=== PATIENT | female | born 1990 | race Caucasian/White ===

== ENCOUNTER → 2017-08-30 | Outpatient (CLI) | payer MEDICAID ==
[~2017-08-30] MED LIST: ACETAMINOPHEN/HYDROcodone 325 MG/5 MG TAB PO
== END ==
LOC: HPND 10:17
DX: O36.63X0 Maternal care for excessive fetal growth, third trimester, not applicable or unspecified (principal); O40.3XX0 Polyhydramnios, third trimester, not applicable or unspecified
CPT/HCPCS: 76816; 76818

== ENCOUNTER 2017-09-16 19:15 | Inpatient (IN) | payer MEDICAID ==
[~2017-09-16] VITALS: Ht 160 cm; Wt 68.0 kg
[~2017-09-16 19:15] MED LIST changes: -ACETAMINOPHEN/HYDROcodone 325 MG/5 MG TAB PO; +LACTATED RINGER'S 1000 ML INJ 2,000 ML IV ONE; +MIRA3350 PO; +ONDANSETRON HCL 4 MG/2 ML VIAL IV ONE; +OXYTOCIN 10 UNIT/ML AMP IV ONE; +PHENYLEPH/NS 1000 MCG/10 ML SYR IV ONE; +PREN1CAP7 PO; +ZANT150T2 PO; +ceFAZolin INJ 1,000 MG VIAL IV ONE; +ePHEDrine/NS 25 MG/5 ML SYRINGE IV ONE
[2017-09-16] MEDS ORDERED: LACTATED RINGER'S 1000 ML INJ 1,000 ML IV ONE (20:00)
--- NOTE | 2017-09-16 20:00 | HHI.HP ---
HPI Chief Complaint Contraction pain water broke Date Seen: Sep 16, 2017 Time Seen: 19:55 Travel History International Travel<30 Days: No Contact w/Intl Traveler<30Days: No Known Affected Area: No History of Present Illness HPI 27-year-old white female previous 1 at 39 weeks who was scheduled for repeat in 2 days but now presents with spontaneous contractions and ruptured membranes. Amnio sure is positive here on OB ED. He is kristopher painfully every 2 minutes. With this she is breech and is polyhydramnios. heart rate tracing is reactive Weeks Gestation: 39 Para: 1 : 2 History Obstetric History Obstetric History 1 for breech Past Surgical History Narrative Surgical Social History Alcohol Use: No Tobacco Use: No Substance Abuse: No Allergies-Medications (Allergen,Severity, Reaction): Coded Allergies: latex (Verified Allergy, Intermediate, itchy, red, 09/16/17) Home Meds Active Scripts W/O Vit A W/ Fe Fumar (Citranatal Lawrence) 27-1-260 Mg Cap, 1 CAP PO DAILY for Nutritional Supplement, #30 CAP 11 Refills Prov:Danay Palacios 03/05/17 Discontinued Reported Medications Polyethylene Glycol 3350 Powder (Miralax Powder) 17 Gm Powd, 17 GM PO DAILY for Constipation, #1 CAN 0 Refills Mix and dissolve one measuring cap-ful (17 grams) in water or juice. 03/05/17 Discontinued Scripts Ranitidine (Zantac) 150 Mg Tab, 150 MG PO BID for Reduce Stomach Acid, #60 TAB 6 Refills Prov:Danay Palacios 06/07/17 Review of Systems General / Constitutional: No: Fever, Weight Gain, Chills, Other Eyes: No: Diploplia, Blurred Vision, Visual changes, Pain, Photophobia HENT: No: Headaches, Vertigo, Lightheadedness Cardiovascular: No: Irregular Rhythm, Chest Pain or Discomfort, Palpitations, Tachycardia, Syncope, Varicosities, Edema, Cyanosis Respiratory: No: Cough, Short of Breath, Other Gastrointestinal: Abdominal Pain, No: Nausea, Vomiting, Diarrhea Genitourinary: No: Decreased Urinary Output, Oliguria Musculoskeletal: No: Limited ROM, Weakness, Cramping, Edema, Pain Skin: No Rash, No Itching, No Dryness, No Lumps, No Change in Pigmentation, No Change in Nails, No Alopecia, No Lesions Neurologic: No: Weakness, Dizziness, Syncope, Focal Abnormalities, Coordination Problem, Headache, Slurred Speech, Seizures Psychiatric: No: Depression, Suicidal Ideations, Homicidal Ideation Endocrine: No: Heat Intolerance, Cold Intolerance, Polydipsia, Polyuria, Other Physical Exam Narrative GENERAL: Well-nourished, well-developed patient. SKIN: Warm and dry. HEAD: Normocephalic and atraumatic. EYES: No scleral icterus. No injection or drainage. ENT: No nasal drainage noted. Mucous membranes pink. Airway patent. NECK: Supple, trachea midline. No JVD. CARDIOVASCULAR: Regular rate and rhythm without murmurs, gallops, or rubs. RESPIRATORY: Breath sounds equal bilaterally. No accessory muscle use. BREASTS: Bilateral exam showed no masses , no retractions, no nipple discharge. ABDOMEN/GI: Abdomen soft, non-tender, bowel sounds present, no rebound, no guarding Gravid to [39-] weeks size Fundal Height: [39-] GENITOURINARY: External Genitalia: intact and normal in appearance vaginal exam-- massive stool impaction preventing exam of cervix Cervix: [-] Unable to examine Dilatation: [-] And able to examine Effacement: [-] Station: [-] Presentation: [Breech-] Membranes: ruptured] positive amnio sure Uterine Contractions: [22 minutes-] FHT's: Category: [-1] Baseline: [-133] Reactive: [-R] Variability: [-mod] Decels: [-none] EXTREMITIES: No cyanosis or edema. BACK: Nontender without obvious deformity. No CVA tenderness. NEUROLOGICAL: Awake and alert. Motor and sensory grossly within normal limits. Five out of 5 muscle strength in all muscle groups. Normal speech. Caprini VTE Risk Assessment Caprini VTE Risk Assessment: No/Low Risk (score <= 1) Caprini Risk Assessment Model Point Value = 1 Point Value = 2 Point Value = 3 Point Value = 5 Age 41-60 Minor surgery BMI > 25 kg/m2 Swollen legs Varicose veins or History of unexplained or recurrent spontaneous Oral contraceptives or hormone replacement Sepsis (< 1 month) Serious lung disease, including pneumonia (< 1 month) Abnormal pulmonary function Acute myocardial infarction Congestive heart failure (< 1 month) History of inflammatory bowel disease Medical patient at bed rest Age 61-74 Arthroscopic surgery Major open surgery (> 45 min) Laparoscopic surgery (> 45 min) Malignancy Confined to bed (> 72 hours) Immobilizing plaster cast Central venous access Age >= 75 History of VTE Family history of VTE Factor V Leiden Prothrombin [id number] Lupus anticoagulant Anticardiolipin antibodies Elevated serum homocysteine Heparin-induced thrombocytopenia Other congenital or acquired thrombophilia Stroke (< 1 month) Elective arthroplasty Hip, pelvis, or leg fracture Acute spinal cord injury (< 1 month) Prophylaxis Regimen Total Risk Factor Score Risk Level Prophylaxis Regimen 0-1 Low Early ambulation 2 Moderate Order ONE of the following: *Sequential Compression Device (SCD) *Heparin 5000 units SQ BID 3-4 Higher Order ONE of the following medications: *Heparin 5000 units SQ TID *Enoxaparin/Lovenox 40 mg SQ daily (WT < 150 kg, CrCl > 30 mL/min) *Enoxaparin/Lovenox 30 mg SQ daily (WT < 150 kg, CrCl > 10-29 mL/min) *Enoxaparin/Lovenox 30 mg SQ BID (WT < 150 kg, CrCl > 30 mL/min) AND/OR *Sequential Compression Device (SCD) 5 or more Highest Order ONE of the following medications: *Heparin 5000 units SQ TID (Preferred with Epidurals) *Enoxaparin/Lovenox 40 mg SQ daily (WT < 150 kg, CrCl > 30 mL/min) *Enoxaparin/Lovenox 30 mg SQ daily (WT < 150 kg, CrCl > 10-29 mL/min) *Enoxaparin/Lovenox 30 mg SQ BID (WT < 150 kg, CrCl > 30 mL/min) AND *Sequential Compression Device (SCD) Data Data Orders Orders Ob (2e) Additional Admit Info (09/16/17 19:53) Group B Strep: Positive Labs + amnisure Assessment/Plan Assessment and Plan Patient's 27-year-old white female 39 weeks previous now for repeat . Patient presents kristopher painfully and with spontaneous ruptured membranes. Amnio sure is positive. Patient scheduled for in 2 days but now will move that up due to labor and ruptured membranes. She has a history of baby with breech presentation this as well as polyhydramnios Plan-proceed with repeat for delivery Cedric Calero II, MD Sep 16, 2017 20:00
[2017-09-16 20:20] LABS: BASOPHIL # 0.1 TH/MM3 (0-0.2); BASOPHIL % 0.4 % (0.0-2.0); HEMATOCRIT 34.6 % (35.0-46.0); HEMOGLOBIN 11.3 GM/DL (11.6-15.3); LYMPH % 14.6 % (9.0-44.0); LYMPHOCYTE # 1.9 TH/MM3 (1.0-4.8); MEAN CELL VOLUME 84.4 FL (80.0-100.0); MEAN CORPUSCULAR HEMOGLOBIN 27.6 PG (27.0-34.0); MEAN CORPUSCULAR HGB CONC 32.7 % (32.0-36.0); MONO % 10.2 % (0.0-8.0); MONOCYTE # 1.4 TH/MM3 (0-0.9); NEUT % 74.8 % (16.0-70.0); PLATELET COUNT 171 TH/MM3 (150-450); RED CELL DISTRIBUTION WIDTH 16.4 % (11.6-17.2); WHITE BLOOD COUNT 13.3 TH/MM3 (4.0-11.0)
[2017-09-16 20:24] LABS: BILIRUBIN, URINE NEG (NEG); BLOOD, URINE TRACE (NEG); GLUCOSE,URINE NEG (NEG); KETONE, URINE 150 mg/dL (NEG); MUCUS URINE FEW /lpf (OCC); NITRITE,URINE NEG (NEG); SQUAMOUS EPITHELIAL CELL URINE 2 /hpf (0-5); URINE COLOR YELLOW (YELLW/STRAW); URINE LEUKOCYTE ESTERASE NEG (NEG)
[2017-09-16] MEDS ORDERED: MORPHINE SULFATE PF 5 MG/10 ML VIAL ONE (20:24)
[2017-09-16] MEDS ORDERED: LACTATED RINGER'S 1000 ML INJ 1,000 ML IV SCH (20:30)
[2017-09-16] MEDS ORDERED: ceFAZolin 2 GM PREMIX 50 ML IV SCH (21:00)
[2017-09-16] MEDS ORDERED: CITRIC ACID-SODIUM CITRATE LIQ 30 ML UDC PO SCH (21:30)
[2017-09-16 22:15] VITALS: BP 111/61; PULSE 108; RESP 22; TEMP 98.7; O2SAT 100
[2017-09-16] MEDS ORDERED: ONDANSETRON HCL 4 MG/2 ML VIAL IV PUSH PRN (22:15)
[2017-09-16] MEDS ORDERED: OXYTOCIN 30 UNITS-500ML PREMIX 500 ML IV ONE (22:15)
[2017-09-16] MEDS ORDERED: oxyCODONE/ACETAMINOPHEN 5 MG/325 MG TAB PO PRN (22:15)
[2017-09-16] MEDS ORDERED: SIMETHICONE 80 MG CHEWABLE TAB PO PRN (22:15)
[2017-09-16] MEDS ORDERED: SODIUM CHLORIDE 0.9% FLUSH 10 ML FLUSH IV FLUSH PRN (22:15)
[2017-09-16] MEDS ORDERED: ACETAMINOPHEN 325 MG TAB PO PRN (22:15)
[2017-09-16] MEDS ORDERED: ZOLPIDEM TARTRATE 5 MG TAB PO PRN (22:15)
[2017-09-16 22:30] VITALS: BP 103/62; PULSE 104; RESP 27; O2SAT 100
[2017-09-16 22:45] VITALS: BP 108/59; PULSE 101; RESP 22; O2SAT 100
[2017-09-16] MEDS ORDERED: OXYTOCIN 30 UNITS-500ML PREMIX 500 ML ONE (22:51)
[2017-09-16 23:00] VITALS: BP 108/58; PULSE 93; RESP 17; O2SAT 99
[2017-09-16 23:15] VITALS: BP 110/60; PULSE 102; RESP 22
[2017-09-17] VITALS (16 sets, daily range): BP systolic 90–107; BP diastolic 52–68; PULSE 16–94; RESP 7–20; TEMP 97.9–98.9; O2SAT 97–99
[2017-09-17 03:09] LABS: AUTOMATED NEUTROPHIL # 8.5 TH/MM3 (1.8-7.7); BASOPHIL % 0.1 % (0.0-2.0); HEMATOCRIT 31.4 % (35.0-46.0); HEMOGLOBIN 10.5 GM/DL (11.6-15.3); LYMPHOCYTE # 0.8 TH/MM3 (1.0-4.8); MEAN CELL VOLUME 84.5 FL (80.0-100.0); MEAN CORPUSCULAR HEMOGLOBIN 28.3 PG (27.0-34.0); MEAN CORPUSCULAR HGB CONC 33.5 % (32.0-36.0); MEAN PLATELET VOLUME 8.3 FL (7.0-11.0); MONO % 10.9 % (0.0-8.0); MONOCYTE # 1.1 TH/MM3 (0-0.9); PLATELET COUNT 168 TH/MM3 (150-450); RED BLOOD COUNT 3.72 MIL/MM3 (4.00-5.30); RED CELL DISTRIBUTION WIDTH 16.5 % (11.6-17.2); WHITE BLOOD COUNT 10.4 TH/MM3 (4.0-11.0)
[2017-09-17] MEDS ORDERED: LACTATED RINGER'S 1000 ML INJ 1,000 ML IV SCH (03:10)
[2017-09-17] MEDS: oxyCODONE/ACETAMINOPHEN 5 MG/325 MG TAB PO PRN ×2 (06:32→22:13)
[2017-09-17] MEDS: IBUPROFEN 600 MG TAB PO PRN ×2 (06:32→22:13)
[2017-09-17] MEDS ORDERED: OXYTOCIN 30 UNITS-500ML PREMIX 500 ML IV PRN (08:15)
--- NOTE | 2017-09-17 08:49 | HHI.OB ---
Subjective Post Operative Day: 1 Remarks Postoperative day number 1. AFVSS overnight. Pain minimal. Incision not draining. Decreased lochia. Denies dysuria. No breast tenderness. She is feeding the baby via breast. Appetite good. No nausea or vomiting. no flatus. no bowel movement. Ambulating well. Denies calf pain, shortness of breath, or cough. Otherwise, she is doing well this morning and has no other complaints. Objective Vitals/I&O Vital Signs Date Time Temp Pulse Resp B/P (MAP) Pulse Ox O2 Delivery O2 Flow Rate FiO2 09/17/17 07:47 97 09/17/17 07:47 86 96/61 (73) 09/17/17 07:46 16 16 09/17/17 07:46 98.9 09/17/17 06:32 18 09/17/17 06:32 8 09/17/17 05:20 98.9 87 18 100/59 (73) 09/17/17 03:53 18 09/17/17 03:40 18 09/17/17 02:30 16 09/17/17 01:13 98.5 88 20 107/68 (81) 09/17/17 00:40 18 09/16/17 23:15 102 22 110/60 (77) 09/16/17 23:00 108/58 (75) 09/16/17 23:00 93 17 99 09/16/17 22:45 101 22 100 09/16/17 22:45 108/59 (75) 09/16/17 22:30 104 27 103/62 (76) 100 09/16/17 22:15 108 111/61 (78) 09/16/17 22:15 98.7 22 100 Result Diagram: 09/17/17 0224 Objective Remarks GENERAL: Well-nourished, well-developed patient. CARDIOVASCULAR: Regular rate and rhythm without murmurs, gallops, or rubs. RESPIRATORY: Breath sounds equal bilaterally. No accessory muscle use. ABDOMEN/GI: Abdomen soft, non-tender, bowel sounds present. Incision: Clean, dry and intact. Fundus: Firm, non-tender at umbilicus. GENITOURINARY: Light to moderate bleeding. EXTREMITIES: No cyanosis or edema, non-tender, without signs of DVT. Medications and IVs Current Medications Medications (Trade) Dose Ordered Sig/Manisha Route Start Time Stop Time Status Last Admin Lactated Ringer's 1,000 ml @ 100 mls/hr Q10H IV 09/17/17 03:10 09/17/17 23:09 09/17/17 03:10 Oxytocin 500 ml @ 100 mls/hr UNSCH X1 PRN IV 09/17/17 08:15 09/18/17 08:14 (NS Flush) 2 ml BID IV FLUSH 09/17/17 09:00 (NS Flush) 2 ml UNSCH PRN IV FLUSH 09/16/17 22:15 (Mylicon Chew) 80 mg QID PRN PO 09/16/17 22:15 (Tylenol) 650 mg Q6H PRN PO 09/16/17 22:15 (Motrin) 600 mg Q6H PRN PO 09/16/17 22:15 09/17/17 06:32 (Percocet 5-325 Mg) 1 tab Q4H PRN PO 09/16/17 22:15 09/17/17 06:32 (Percocet 5-325 Mg) 2 tab Q4H PRN PO 09/16/17 22:15 (Patricia-Colace) 2 tab Q12H PRN PO 09/16/17 22:15 (Ambien) 5 mg HS PRN PO 09/16/17 22:15 (M-M-R Ii Inj) 0.5 ml ONCE ONCE SQ 09/17/17 16:00 09/17/17 16:01 (Zofran Inj) 4 mg Q6H PRN IV PUSH 09/16/17 22:15 Non-Formulary Medication ADACEL (LATEX FREE) D... ONCE ONCE IM 09/17/17 16:00 09/17/17 16:01 Assessment/Plan Assessment and Plan 27 y/o female who is POD# 1 s/p repeat CXN. -Continue routine care. -Percocet and Motrin PRN pain. -Encouraged OOB. Advised pelvic rest for 6 wks. Will need a f/u appt. in 1 wk for incision check. -Re: ctrl, she would like Nexplanon. -D/c in 1-2 more days. wdw OB attending, Jennifer Slaughter MD R1 Sep 17, 2017 08:49
[2017-09-17] MEDS ORDERED: SODIUM CHLORIDE 0.9% FLUSH 10 ML FLUSH IV FLUSH SCH (09:00)
--- NOTE | 2017-09-17 13:26 | MP ---
cc: LACEY ONOFRE MD DATE OF SURGERY 09/16/2017 PREOPERATIVE DIAGNOSES 1. Term intrauterine . 2. Previous . 3. In early labor with spontaneous rupture of membranes. 4. For repeat . 5. Breech presentation. 6. Polyhydramnios. POSTOPERATIVE DIAGNOSES 1. Term intrauterine . 2. Previous . 3. In early labor with spontaneous rupture of membranes. 4. For repeat . 5. Breech presentation. 6. Polyhydramnios. 7. Fecal impaction. PROCEDURE PERFORMED 1. Repeat low transverse section. 2. Fecal disimpaction. SURGEON MD Abdias TROUBLE OPERATOR Valorie ANESTHESIA Spinal. PREOPERATIVE NOTE The patient is a 27-year-old white female, at 39 weeks. She had a previous , for repeat in two days but has now come in early labor with painful regular contractions and spontaneous rupture of the membranes, positive AmniSure noted. Also noted to have a large fecal impaction. Supposedly has polyhydramnios and breech presentation. I felt the patient's needed to be moved up to this time. PROCEDURE The patient was taken to the operating room and placed in supine position on the operating room table. Adequate spinal anesthesia was administered. She was prepped and draped in position for surgery. A previous Pfannenstiel incision was excised out and incision carried to the fascia sharply, the fascia dissected laterally off the rectus muscle. The peritoneal cavity was entered sharply in the midline, the incision extended superiorly and inferiorly. The bladder was protected by the bladder blade. The visceral peritoneum was reflected off the lower uterine segment and transverse hysterotomy was extended bluntly bilaterally. Clear fluid was noted. A large amount of fluid due to the polyhydramnios was noted; 3 liters was aspirated out. The baby flipped from breech to vertex due to the hydraulic pressure of the fluid coming out at such a rapid rate and baby then delivered from a cephalic presentation at 21:03. A male , weight 4190 grams, Apgars 9 and 9. There were no complications of delivery. Cord blood obtained after delayed cord clamping noted and then the placenta was manually extracted. The uterus was exteriorized and the Pitocin added to IV fluids. The hysterotomy was closed in a running layer of 0 chromic followed by an imbricating suture of same. Hemostasis was achieved with several [id number] stick ties on the suture line. The visceral peritoneum was reapproximated at the bladder line and the uterus elevated, blood suctioned from the cul-de-sac and gutter. The colon was examined at that time and noted to be a normal-sized colon, not a megacolon with stool in the rectal vault but none significantly in the colon itself. The uterus was replaced in the peritoneal cavity. The parietal peritoneum was closed in a running layer of 2-0 Vicryl. The muscle was reapproximated in pieces with chromic. The fascia was closed in a running layer of 0 Vicryl. The subcutaneous tissue was reapproximated with a running 3-0 plain catgut suture and the skin closed with 3-0 Monocryl suture. Steri-Strips and pressure dressing were applied. The patient was then placed in stirrups and fecal disimpaction was performed with manual removal of approximately 2-3 pounds of stool. The rectal vault was cleaned thoroughly at that point and the procedure was terminated. The estimated blood loss was 500 cc. There were no complications. Sponge and instrument counts correct x2 and the patient went to Recovery in stable condition. MD CODI Obando/JOHNNY /10:33 PM /12:54 PM
[2017-09-17] MEDS ORDERED: [UNRECOGNIZED DRUG - OTHER] IM ONE ×2 (16:00→23:00)
[2017-09-17] MEDS ORDERED: MEASLES, MUMPS, RUBELLA VACCINE 0.5 ML VIAL SQ ONE (16:00)
[2017-09-17] MEDS ORDERED: DIPHTH/TETANUS/ACEL PERTUSSIS (BOOSTER) 0.5 ML VIAL/PFS IM ONE (16:00)
[2017-09-17] MEDS ORDERED: TETANUS IM ONE ×2 (16:00→23:00)
[2017-09-17] MEDS ORDERED: DIPHTH IM ONE ×2 (16:00→23:00)
[2017-09-18] MEDS: IBUPROFEN 600 MG TAB PO PRN ×3 (07:51→20:03)
[2017-09-18] MEDS: DOCUSATE SODIUM 50 MG/SENNA 8.6 MG TAB PO PRN ×2 (07:51→20:03)
[2017-09-18] MEDS: oxyCODONE/ACETAMINOPHEN 5 MG/325 MG TAB PO PRN ×3 (07:52→20:04)
[2017-09-18 08:10] VITALS: BP 98/62; PULSE 62; RESP 16; TEMP 97.9
--- NOTE | 2017-09-18 08:58 | HHI.OB ---
Subjective Post Operative Day: 2 Remarks Postoperative day number 2. AFVSS overnight. Pain minimal. Incision not draining. Decreased lochia. Denies dysuria. No breast tenderness. She is feeding the baby via breast. Appetite good. No nausea or vomiting. + flatus. no bowel movement. Ambulating well. Denies calf pain, shortness of breath, or cough. Otherwise, she is doing well this morning and has no other complaints. Objective Vitals/I&O Vital Signs Date Time Temp Pulse Resp B/P (MAP) Pulse Ox O2 Delivery O2 Flow Rate FiO2 09/18/17 08:10 97.9 62 16 98/62 (74) 09/17/17 20:00 72 18 95/53 (67) 09/17/17 20:00 97.9 98 09/17/17 16:51 17 09/17/17 16:09 98.0 94 18 98/64 (75) 98 09/17/17 14:57 7 09/17/17 13:12 18 09/17/17 12:00 90/52 (65) 09/17/17 12:00 98.2 71 16 99 09/17/17 09:30 18 Result Diagram: 09/17/17 0224 Objective Remarks GENERAL: Well-nourished, well-developed patient. CARDIOVASCULAR: Regular rate and rhythm without murmurs, gallops, or rubs. RESPIRATORY: Breath sounds equal bilaterally. No accessory muscle use. ABDOMEN/GI: Abdomen soft, non-tender, bowel sounds present. Incision: Steristrips with dried blood, minimal oozing of blood intact. Bruising of mons pubis. No signs of infection. Fundus: Firm, non-tender at umbilicus. GENITOURINARY: Light to moderate bleeding. EXTREMITIES: No cyanosis or edema, non-tender, without signs of DVT. Medications and IVs Current Medications Medications (Trade) Dose Ordered Sig/Manisha Route Start Time Stop Time Status Last Admin (NS Flush) 2 ml BID IV FLUSH 09/17/17 09:00 (NS Flush) 2 ml UNSCH PRN IV FLUSH 09/16/17 22:15 (Mylicon Chew) 80 mg QID PRN PO 09/16/17 22:15 (Tylenol) 650 mg Q6H PRN PO 09/16/17 22:15 (Motrin) 600 mg Q6H PRN PO 09/16/17 22:15 09/18/17 07:51 (Percocet 5-325 Mg) 1 tab Q4H PRN PO 09/16/17 22:15 09/18/17 07:52 (Percocet 5-325 Mg) 2 tab Q4H PRN PO 09/16/17 22:15 (Patricia-Colace) 2 tab Q12H PRN PO 09/16/17 22:15 09/18/17 07:51 (Ambien) 5 mg HS PRN PO 09/16/17 22:15 (Zofran Inj) 4 mg Q6H PRN IV PUSH 09/16/17 22:15 Assessment/Plan Assessment and Plan 27 y/o female who is POD# 2 s/p repeat CXN. -Continue routine care. -Percocet and Motrin PRN pain. -Encouraged OOB. Advised pelvic rest for 6 wks. Will need a f/u appt. in 1 wk for incision check. -Re: ctrl, she would like Nexplanon. -D/c tomorrow. vipin OB attending, Jennifer Ridley MD R1 Sep 18, 2017 08:58
[2017-09-18 14:15] VITALS: RESP 18
[2017-09-18 20:00] VITALS: PULSE 76; RESP 18; TEMP 98; O2SAT 98
[2017-09-19] MEDS: oxyCODONE/ACETAMINOPHEN 5 MG/325 MG TAB PO PRN ×2 (02:54→11:17)
[2017-09-19] MEDS: IBUPROFEN 600 MG TAB PO PRN ×2 (02:55→11:18)
[2017-09-19] MEDS ORDERED: OXYC1TAB63 PO (07:23)
[2017-09-19] MEDS ORDERED: IBUP-232 PO (07:23)
[2017-09-19] MEDS ORDERED: PERI PO (07:23)
[2017-09-19 08:10] VITALS: BP 105/64; PULSE 67; RESP 16; TEMP 97.9
--- NOTE | 2017-09-19 08:13 | HHI.OB ---
Subjective Post Operative Day: 3 Remarks Postoperative day number 3. AFVSS overnight. Pain minimal. Incision not draining. Decreased lochia. Denies dysuria. No breast tenderness. She is feeding the baby via breast. Appetite good. No nausea or vomiting. + flatus. no bowel movement. Ambulating well. Denies calf pain, shortness of breath, or cough. Otherwise, she is doing well this morning and has no other complaints. Objective Vitals/I&O Vital Signs Date Time Temp Pulse Resp B/P (MAP) Pulse Ox O2 Delivery O2 Flow Rate FiO2 09/18/17 20:00 98.0 76 18 98 09/18/17 14:15 18 09/18/17 08:10 97.9 62 16 98/62 (74) Result Diagram: 09/17/17 0224 Objective Remarks GENERAL: Well-nourished, well-developed patient. CARDIOVASCULAR: Regular rate and rhythm without murmurs, gallops, or rubs. RESPIRATORY: Breath sounds equal bilaterally. No accessory muscle use. ABDOMEN/GI: Abdomen soft, non-tender, bowel sounds present. Incision: Steristrips with dried blood, no active bleeding. No signs of infection. Fundus: Firm, non-tender at umbilicus. GENITOURINARY: Light to moderate bleeding. EXTREMITIES: No cyanosis or edema, non-tender, without signs of DVT. Medications and IVs Current Medications Medications (Trade) Dose Ordered Sig/Manisha Route Start Time Stop Time Status Last Admin (NS Flush) 2 ml BID IV FLUSH 09/17/17 09:00 (NS Flush) 2 ml UNSCH PRN IV FLUSH 09/16/17 22:15 (Mylicon Chew) 80 mg QID PRN PO 09/16/17 22:15 (Tylenol) 650 mg Q6H PRN PO 09/16/17 22:15 (Motrin) 600 mg Q6H PRN PO 09/16/17 22:15 09/19/17 02:55 (Percocet 5-325 Mg) 1 tab Q4H PRN PO 09/16/17 22:15 09/19/17 02:54 (Percocet 5-325 Mg) 2 tab Q4H PRN PO 09/16/17 22:15 (Patricia-Colace) 2 tab Q12H PRN PO 09/16/17 22:15 09/18/17 20:03 (Ambien) 5 mg HS PRN PO 09/16/17 22:15 (Zofran Inj) 4 mg Q6H PRN IV PUSH 09/16/17 22:15 Assessment/Plan Assessment and Plan 27 y/o female who is POD# 3 s/p repeat CXN. -Continue routine care. -Percocet and Motrin PRN pain. -Encouraged OOB. Advised pelvic rest for 6 wks. Will need a f/u appt. in 1 wk for incision check. -Re: ctrl, she would like Nexplanon. -D/c home today wdw OB attending, Jennifer Slaughter MD R1 Sep 19, 2017 08:13
[2017-09-19] MEDS ORDERED: POLYETHYLENE GLYCOL 17 GM PKG PO SCH ×2 (09:00)
--- NOTE | 2017-09-19 09:30 | HHI.DCPOC ---
Discharge Care Plan Diagnosis: (1) S/P repeat low transverse Report Symptoms to Your Doctor -Temperature above 100.5 degrees -Redness, of incision or excessive or foul smelling drainage -Unusual pain or calf pain -Increased vaginal bleeding -Painful or difficulty urinating -Feelings of extreme sadness or anxiety after 2 weeks Goals to Promote Your Health * To prevent worsening of your condition and complications * To maintain your health at the optimal level Directions to Meet Your Goals Take your medications as prescribed Follow your dietary instruction Follow activity as directed Ensure plenty of rest for recovery Drink fluids for hydration Keep your appointments as scheduled Take your immunizations and boosters as scheduled If your symptoms worsen call your PCP, if no PCP go to Urgent Care Center or Emergency Room Smoking is Dangerous to Your Health. Avoid second hand smoke Call the 24-hour crisis hotline for domestic abuse at Jennifer Parham MD R1 Sep 19, 2017 09:30
== END 2017-09-19 13:17 | disposition home or self-care (01) | DRG 765 ==
LOC: HOBED 19:15 → H2EB 19:56 → H1EA 23:29
PROVIDERS: ADMIT Obstetrics & Gynecology Maternal & Fetal Medicine; ATTEND Obstetrics & Gynecology Maternal & Fetal Medicine
PROC: 10D00Z1 Extraction of Products of Conception, Low, Open Approach (ICD-10-PCS; principal; 2017-09-16)
PROC: 0DCP7ZZ Extirpation of Matter from Rectum, Via Natural or Artificial Opening (ICD-10-PCS; 2017-09-16)
DX: O34.211 Maternal care for low transverse scar from previous cesarean delivery (principal); O40.3XX0 Polyhydramnios, third trimester, not applicable or unspecified; Z37.0 Single live birth; Z3A.39 39 weeks gestation of pregnancy; O32.1XX0 Maternal care for breech presentation, not applicable or unspecified; O99.824 Streptococcus B carrier state complicating childbirth; K56.41 Fecal impaction
CPT/HCPCS: 80307; 81001; 84112; 85025; 86592; 86762; 86850; 86900; 86901; 99285; J0690; J2274; J2370; J2405; J2590; J7120